=== PATIENT | male | born 1950 | race Caucasian/White ===

== ENCOUNTER 2019-10-06 06:26 | Day surgery (SDC) | payer MEDICARE, OTHER, SELFPAY | END 2019-10-06 08:40 | disposition home or self-care (01) | PROVIDERS: PCP Internal Medicine; Visit Provider Surgery | DX: R19.5 Other fecal abnormalities (principal); K57.30 Diverticulosis of large intestine without perforation or abscess without bleeding; D12.3 Benign neoplasm of transverse colon; K62.1 Rectal polyp | CPT/HCPCS: 45384; 00811; 88305; J2704; J7120 ==

== ENCOUNTER 2020-12-05 08:42 | Outpatient (CLI) | payer MEDICARE, OTHER, SELFPAY ==
--- NOTE | ~2020-12-05 | XR_ITS ---
EXAMINATION: XR chest 2V 12/05/2020 09:08 INDICATION: Shortness of breath PROCEDURE: 2 view chest COMPARISON: No prior studies for comparison. FINDINGS: There is left basilar atelectasis. No focal pneumonia, edema, pleural effusion or pneumotho rax. The cardiomediastinal silhouette is within normal limits. There are no pleural effusions. Ther e is no pneumothorax suspected. There is diffuse idiopathic skeletal hyperostosis (DISH) of the tho racic spine. IMPRESSION: 1: Left basilar atelectasis. Reviewed, dictated and finalized at location B.
== END 2020-12-05 08:43 | disposition home or self-care (01) ==
LOC: CHSIMG 08:44
PROVIDERS: PCP Internal Medicine; Visit Provider Internal Medicine
DX: R06.02 Shortness of breath (principal)
CPT/HCPCS: 71046

== ENCOUNTER 2020-12-12 09:42 | Outpatient (CLI) | payer MEDICARE, OTHER, SELFPAY ==
--- NOTE | 2020-12-12 09:49 | ECHO_ITS ---
Patient Info Name: Yoel Alfred Age: 70 years : 1950 Gender: Male Ht: 70 in Wt: 235 lbs BSA: 2.33 m2 HR: 94 bpm BP: 147 / 72 mmHg Heart Rhythm: Sinus Rhythm Technical Quality: Fair Exam Date: 12/12/2020 9:42 AM Exam Location: [facility] Patient Status: Outpatient Admit Date: 12/12/2020 Staff Ordering Physician: Jose Dietz MD Blister Rust Eradicator: Val Guevara RDCS Attending Provider: Jose Dietz MD Referring Physician: J Luis NGO; Exam Type: CA echo dop color flow w con Study Info Indications R06.00 - Dyspnea, unspecified Complete two-dimensional, color flow and Doppler transthoracic echocardiogram is performed with contrast to opacify the left ventricle and to improve the deliniation of the left ventricle endocardial borders. Strain analysis performed. Contrast/Agitated Saline Contrast/Ag. Saline: Definity Amount: 3.00 ml New IV Access: Antecubital Space and Right Site Condition: No extravasation, Site dressing applied and IV removed History/Risk Factors Hypertension: Yes Dyslipidemia: Yes Congenital Heart Disease (CHD): No Peripheral Arterial Disease (PAD): No Myocardial Infarction (MD): No Chronic Lung Disease: No Obesity: Yes Renal Disease: No Congestive Heart Failure (CHF): No Cardiomyopathy/LV Systolic Dysfunction: No Diabetes Mellitus: No COPD: No Tobacco Use: Former Cerebrovascular Disease: No Family History: Coronary Artery Disease Deep Vein Thrombosis (DVT): None Dialysis: None Frailty Scale (CSHA): 3: Managing Well Cardiac Arrest: No Summary 1. Left ventricular chamber dimension is normal. 2. Left ventricular systolic function is normal, estimated at 60-65%. 3. Definity contrast administered improved wall motion interpretation. 4. The left ventricular diastolic function is grade I diastolic dysfunction. 5. Global longitudinal strain is abnormal at -15.5%. 6. There is small circumferential pericardial effusion. Left Ventricle Definity contrast administered improved wall motion interpretation. E/e' from tissue doppler is not calculated. Global longitudinal strain is abnormal at -15.5%. Left ventricular chamber dimension is normal. Left ventricular systolic function is normal, estimated at 60-65%. The left ventricular diastolic function is grade I diastolic dysfunction. Right Ventricle Right ventricular systolic function is normal with normal TAPSE 1.8 cm.. Right ventricular chamber dimension is normal. Left Atria Left atrial chamber dimension is normal. Right Atria Right atrial chamber dimension is normal. Aortic Valve The aortic valve is trileaflet. There is no aortic valve stenosis. There is no aortic valve regurgitation. Pulmonic Valve There is no pulmonic regurgitation. Mitral Valve There is no mitral valve stenosis. There is no mitral valve regurgitation. Tricuspid Valve There is no tricuspid valve regurgitation. Pericardium/Pleural There is small circumferential pericardial effusion. Inferior Vena Cava Normal inferior vena cava with >50% collapse upon inspiration consistent with normal right atrial pressure, 5 mmHg. Aorta The aortic root size at the sinus of Valsalva is normal. Left Ventricular Outflow Tract Name Value Normal -----
== END 2020-12-12 09:43 | disposition home or self-care (01) ==
LOC: CHSIMG 09:43
PROVIDERS: PCP Internal Medicine; Visit Provider Internal Medicine
DX: R06.00 Dyspnea, unspecified (principal)
CPT/HCPCS: C8929

== ENCOUNTER 2020-12-17 08:44 | Outpatient (CLI) | payer MEDICARE, OTHER, SELFPAY | END 2020-12-17 08:45 | disposition home or self-care (01) | LOC: CHSCARD 08:46 | PROVIDERS: PCP Internal Medicine; Visit Provider Internal Medicine | DX: R06.02 Shortness of breath (principal) | CPT/HCPCS: 94060; 94726; 94729 ==

== ENCOUNTER 2022-01-14 11:34 | Outpatient (CLI) | payer MEDICARE, OTHER, SELFPAY ==
--- NOTE | ~2022-01-14 | XR_ITS ---
EXAM: XR lumbar spine 2-3V DATE: 01/14/2022 11:57 HISTORY: Low back pain . COMPARISON: None available. FINDINGS: 5 nonrib-bearing lumbar-type vertebral bodies. Pedicles intact. Multilevel disc space narr owing and marginal osteophytosis, vacuum phenomenon at L2-3 and L3-4. Multilevel severe facet scleros is. Exaggerated lumbar lordosis. 2 mm anterolisthesis of L3 on L4, likely on a degenerative basis. Ab dominal aortic calcification without aneurysm. Lytic appearance in the mid sacrum, with possible over lying subcutaneous gas. IMPRESSION: Possible subcutaneous gas and sacral lytic lesion, correlate with findings of sacral decu bitus ulcer and consider CT of the pelvis for further evaluation. Severe degenerative disc disease. S evere facet arthropathy. Reviewed, dictated and finalized at location K. IMPRESSION: Possible subcutaneous gas and sacral lytic lesion, correlate with f indings of sacral decubitus ulcer and consider CT of the pelvis for further josé luation. Severe degenerative disc disease. Severe facet arthropathy.
== END 2022-01-14 11:35 | disposition home or self-care (01) ==
LOC: CHSIMG 11:37
PROVIDERS: PCP Internal Medicine; Visit Provider Internal Medicine
DX: M54.50 Low back pain, unspecified (principal)
CPT/HCPCS: 72100

== ENCOUNTER 2022-01-15 10:39 | Outpatient (CLI) | payer MEDICARE, OTHER, SELFPAY ==
--- NOTE | ~2022-01-15 | CT_ITS ---
EXAMINATION: CT pelvis wo con DATE: 01/15/2022 11:20 INDICATION: Possible subcutaneous emphysema and sacral lytic lesion noted on the lumbar spine radiogr aphic examination of 01/14/2022 TECHNIQUE: Computed tomography (CT) of the pelvis was performed without intravenous contrast. Automat ed exposure control and iterative reconstruction technique were employed. Exam dose: 1041.76 mGy-cm total exam DLP. COMPARISON: None FINDINGS: Normal appendix. There are numerous diverticula of the sigmoid and descending colon; no CT evidence of diverticulitis. No bowel obstruction is evident. There is atherosclerotic calcification of the included distal abdominal aorta as well as the iliac an d femoral arteries. No intraperitoneal or retroperitoneal or pelvic mass lesion or adenopathy or asci yusuf. Line there is prostate enlargement. Small fat-containing left inguinal hernia. No subcutaneous emphysema or decubitus ulcers identified in the pelvic area. There is moderately severe degenerative disc disease and minimal retrolisthesis at L3-4. Moderate degenerative disc disease and minimal anterolisthesis at L4-5. There is degenerative change at the apophyseal joints of the lower lumbar and lumbosacral area. Moderate degenerative disc disease at L5-S1. No sacral fracture or bone destruction. There is degenerative spurring at the sacroiliac joints. No p elvic fracture or bone destruction. No sacral fracture or lytic lesion. IMPRESSION: No subcutaneous emphysema or sacral lytic lesion Degenerative disc disease of the lower lumbar area Degenerative change at the sacral iliac joints Normal appendix Diverticulosis of the left colon Prostate enlargement Small fat-containing left inguinal hernia Reviewed, dictated and finalized at Location A. Reviewed, dictated and finalized at location A.
--- NOTE | ~2022-01-15 | XR_ITS ---
XR_CERV2-3V_CR DATE: 01/15/2022 11:19 INDICATION: Neck pain, worse in the morning. No known injury. TECHNIQUE: AP, open-mouth, lateral views COMPARISON: None FINDINGS: C7 is not optimally demonstrated on the lateral view due to superimposed shoulders. Repeat lateral examination greater penetration and swimmer's view are recommended. C1 and C2 are normally aligned and the odontoid process is intact. There is minimal anterolisthesis at C3-4 and C4-5. No fracture or dislocation or locked facet or prevertebral soft tissue swelling is evident. There is degenerative change at the apophyseal joints, most prominent in the upper mid cervical spine , especially on the left. IMPRESSION: Incomplete examination; additional views are recommended above Reviewed, dictated and finalized at Location A. Reviewed, dictated and finalized at location A.
== END 2022-01-15 10:40 | disposition home or self-care (01) ==
LOC: CHSIMG 10:41
PROVIDERS: PCP Internal Medicine; Visit Provider Internal Medicine
DX: M54.2 Cervicalgia (principal); R93.7 Abnormal findings on diagnostic imaging of other parts of musculoskeletal system
CPT/HCPCS: 72040; 72192

== ENCOUNTER 2022-01-29 14:08 | Outpatient (CLI) | payer MEDICARE, OTHER, SELFPAY ==
--- NOTE | ~2022-01-29 | XR_ITS ---
XR chest 2V DATE: 01/29/2022 14:53 INDICATION: Dyspnea. Elevated d-dimer. TECHNIQUE: 2 views COMPARISON: 12/05/2020 PA and lateral chest FINDINGS: There is degenerative spurring and mild levoscoliosis of the thoracic spine. There is mild bibasilar atelectasis. The lungs otherwise appear clear. No pleural effusion or pulmona ry vascular congestion or pneumothorax. Normal heart size. Mild degenerative spurring of the thoracic spine. IMPRESSION: Mild bibasilar atelectasis Reviewed, dictated and finalized at location A. IMPRESSION: Mild bibasilar atelectasis
[2022-01-29 14:42] LABS: Hematocrit 31.2 % (37.0-46.0); Hemoglobin 10.4 g/dL (12.4-15.3); Mean Corpuscular HGB Conc 33.3 g/dL (32.0-36.0); Mean Corpuscular Hemoglobin 31.9 pg (27.0-31.0); Mean Corpuscular Volume 95.7 fL (78.0-102.0); Mean Platelet Volume 8.6 fl (8.7-11.0); Platelet Count Result 218 K/mm3 (150-420); Red Blood Count 3.26 M/mm3 (4.70-6.10); Red Cell Distribution Width 14.1 % (11.6-14.4)
[2022-01-29 15:10] LABS: Band Neutrophils Percent 1 % (0-6); Basophils Absolute Manual 0.22 K/mm3 (0-0.1); Basophils Percent Manual 1 % (0-1); Eosinophils Absolute Manual 0.22 K/mm3 (0.02-0.5); Eosinophils Percent Manual 1 % (1-6); Lymphocytes Percent Manual 11 % (18-44); Monocytes Absolute Manual 0.45 K/mm3 (0.1-0.90); Monocytes Percent Manual 2 % (3-9); Neutrophils Absolute Manual 19.38 K/mm3 (1.3-6.7); Neutrophils Percent Manual 84 % (46-73); Platelet Estimate Adequate (Adequate); Total Cells Counted 100; White Blood Count 22.8 K/mm3 (4.8-10.8)
[2022-01-29 15:25] LABS: Alanine Aminotransferase 328 U/L (16-63); Albumin Level 2.9 g/dL (3.4-5.0); Alkaline Phosphatase 433 U/L (46-116); Anion Gap 9 mmol/L (8-16); Aspartate Amino Transferase 131 U/L (15-37); Bilirubin,Total 4.9 mg/dL (0.00-1.00); Blood Urea Nitrogen 27 mg/dL (7-18); Calcium 8.5 mg/dL (8.5-10.1); Carbon Dioxide 25 mmol/L (21-32); Chloride 95 mmol/L (98-108); Estimated Glomerular Filt Rate > 60; Glucose 204 mg/dL (70-99); NT Pro B Type Natriuretic Pept 208 pg/mL (0-125); Osmolality Calculated 279 mOsm/kg (285-295); Potassium 3.7 mmol/L (3.5-5.1); Sodium 129 mmol/L (136-145); Total Protein 6.9 g/dL (6.4-8.2)
== END 2022-01-29 14:09 | disposition home or self-care (01) ==
PROVIDERS: PCP Internal Medicine; Visit Provider Internal Medicine
DX: R06.02 Shortness of breath (principal); R79.1 Abnormal coagulation profile; R53.83 Other fatigue
CPT/HCPCS: 36415; 71046; 80048; 80053; 83880; 84484; 85025; 85380

== ENCOUNTER 2022-01-29 15:29 | Emergency (ER) | payer MEDICARE, OTHER, SELFPAY ==
[2022-01-29] VITALS (25 sets, daily range): BP systolic 111–127; BP diastolic 68–81; PULSE 82–108; RESP 19–33; TEMP 36.2; O2SAT 97–100
--- NOTE | ~2022-01-29 | CT_ITS ---
EXAMINATION: CT abdomen pelvis w con DATE: 01/29/2022 17:10 INDICATION: Abn CTA PE study, pt is jaundice decr appetite x1wk TECHNIQUE: Computed tomography (CT) of the abdomen and pelvis was performed with 100 mL Omnipaque-350 intravenous contrast. Automated exposure control and iterative reconstruction technique were employe d. The dose-length product was 1326.22 mGy-cm. COMPARISON: CTPA same date. FINDINGS: Lower thorax: Straightened interventricular septum. Right basilar opacity may reflect infarct or infe ction. Liver: Innumerable low density liver masses. Scattered subcentimeter lymph nodes in the kenny hepatis . Biliary/Gallbladder: Enlarged. Extra hepatic bile duct dilation. Pancreas: 13 mm hypodensity at the junction of the head and neck. Multiple scattered ill-defined hypo densities in the body and tail of the pancreas with somewhat peripheral distribution. Pancreas is mil dly enlarged, with surrounding inflammatory change most evident at the head/neck junction. Spleen: Normal. Adrenals:No mass. Kidneys: Left upper pole and right lower pole possible cysts. No hydronephrosis or calcification. GI tract: Marked irregularity at the duodenal C-loop, with irregular somewhat nodular appearing wall thickening of the third portion of duodenum, and surrounding inflammatory change that has no clear fa t plane with the pancreatic head. Large and small bowel otherwise normal. Appendix not visualized. Di verticulosis without diverticulitis. Mesentery/Peritoneum: No ascites, mass, or free air. Retroperitoneum: No mass. Atherosclerotic arterial calcifications, with small fusiform distal aortic aneurysm, and intramural thrombus. Pelvis: Prostatomegaly. Soft Tissues: Soft tissues and body wall unremarkable. Bones: No acute osseous finding. IMPRESSION: Masslike nodularity at the duodenal C-loop, may reflect a duodenal or pancreatic primary, causing aarti iary and pancreatic duct dilation. Multiple pancreatic hypodensities may reflect metastases or edema/ developing pseudocysts from postobstructive inflammation. Innumerable hepatic metastases. Consider [facility] stro[facility]ology referral for possible endoscopy. Ultrasound-guided liver biopsy could also be consider ed for further evaluation. Reviewed, dictated and finalized at location K. IMPRESSION: Masslike nodularity at the duodenal C-loop, may reflect a duodenal or pancreati c primary, causing biliary and pancreatic duct dilation. Multiple pancreatic hy podensities may reflect metastases or edema/developing pseudocysts from postobs tructive inflammation. Innumerable hepatic metastases. Consider gastroenterolog y referral for possible endoscopy. Ultrasound-guided liver biopsy could also be considered for further evaluation.
--- NOTE | ~2022-01-29 | CT_ITS ---
EXAMINATION: CTA chest PE protocol DATE: 01/29/2022 16:04 INDICATION: Shortness of breath TECHNIQUE: Computed tomography angiography (CTA) of the chest was performed with 100 mL Omnipaque-350 intravenous contrast timed to evaluate the pulmonary arteries. Coronal maximum intensity projection 3D-reconstructions were created by the technologist. The dose-length product (DLP) was 816.03 mGy-cm. Automated exposure control and iterative reconstruction technique were employed. COMPARISON: None. FINDINGS: The pulmonary arteries are well-opacified. There are acute emboli in all lobes of the lungs . There are emboli and first order segmental branches of the left upper lobe. There is straightening of the interventricular septum of the heart. The heart size is normal. There is a focal subpleural op acity in the right lower lobe. No pleural effusion or pneumothorax. There are no pathologically enlar ged thoracic lymph nodes. There are bridging osteophytes at multiple levels in the spine, consistent with diffuse idiopathic skeletal hyperostosis (DISH). The gallbladder is distended. There is also dis tention of the main pancreatic duct. There are questionable areas of low-attenuation of the liver. Th ere is an ill-defined soft tissue mass at the junction of the head/neck of the pancreas which measure s up to 2.9 cm. IMPRESSION: 1. Widespread pulmonary emboli including proximal branches in the left upper lobe. Straightening of t he interventricular septum could reflect right heart strain. 2. Gallbladder distention and dilated pancreatic duct which could reflect distal common bile duct obs truction from mass or choledocholithiasis. Consider dedicated CT of the abdomen and pelvis. 3. Ill-defined soft tissue mass in the head/neck of the pancreas junction which could reflect acute p ancreatitis versus mass. 4. Possible liver masses which may be artifactual versus true masses given the early phase of contras t administration. 5. Subpleural airspace opacity of the right lower lobe which could reflect pulmonary infarct versus p neumonia. These findings and recommendations were discussed with Dr. Yoel Camacho MD in the Emergency Depart ment at 1620 hours on 01/29/2022. Reviewed, dictated and finalized at location A. IMPRESSION: 1. Widespread pulmonary emboli including proximal branches in the left upper lo be. Straightening of the interventricular septum could reflect right heart stra in. 2. Gallbladder distention and dilated pancreatic duct which could reflect dista l common bile duct obstruction from mass or choledocholithiasis. Consider dedic ated CT of the abdomen and pelvis. 3. Ill-defined soft tissue mass in the head/neck of the pancreas junction which could reflect acute pancreatitis versus mass. 4. Possible liver masses which may be artifactual versus true masses given the early phase of contrast administration. 5. Subpleural airspace opacity of the right lower lobe which could reflect pulm onary infarct versus pneumonia. These findings and recommendations were discussed with Dr. Yoel Camacho MD i n the Emergency Department at 1620 hours on 01/29/2022.
--- NOTE | 2022-01-29 15:34 | ED.SOB ---
HPI - SOB/Dyspnea General Chief Complaint: Shortness of Breath/Dyspnea <Yoel Camacho MD - Last Filed: 02/02/22 11:09> Stated Complaint: sent by dr lares <Yoel Camacho MD - Last Filed: 02/02/22 11:09> Time Seen by Provider: 01/29/22 15:34 <Yoel Camacho MD - Last Filed: 02/02/22 11:09> Source: patient and RN notes reviewed <Yoel Camacho MD - Last Filed: 02/02/22 11:09> Mode of arrival: wheelchair <Yoel Camacho MD - Last Filed: 02/02/22 11:09> Limitations: no limitations <Yoel Camacho MD - Last Filed: 02/02/22 11:09> History of Present Illness HPI Narrative: patient states he had a sudden sharp pain in his neck 2 weeks ago. Said he could barely lift his head. He went to see his primary care physician at that time he also complained of some shortness of breath. He was sent over for x-rays of his neck his cervical spine and lumbar spine as well as pelvic CT. No significant findings. he went back to his primary care on January.He was put on some antibiotics and a Medrol Dosepak. Today he had a similar episode with his neck but is still having problems with dyspnea shortness of breath. He called his primary care physician who did some outpatient labs found to have elevated D-dimer, elevated troponin, and a white count of 22.8. He denies any other associated symptoms such as leg pain or calf tenderness, fever chills, nausea vomiting, diaphoresis, chest pain. He is sent here from his primary care physician's office for further evaluation. <Yoel Camacho MD - Last Filed: 02/02/22 11:09> MD elicited complaint: shortness of breath <Yoel Camacho MD - Last Filed: 02/02/22 11:09> Onset (ago): week(s) (2) <Yoel Camacho MD - Last Filed: 02/02/22 11:09> Timing: intermittent <Yoel Camacho MD - Last Filed: 02/02/22 11:09> Severity: moderate <Yoel Camacho MD - Last Filed: 02/02/22 11:09> Exacerbating factors: exertion <Yoel Camacho MD - Last Filed: 02/02/22 11:09> Relieving factors: nothing <Yoel Camacho MD - Last Filed: 02/02/22 11:09> Associated symptoms: denies other symptoms <Yoel Camacho MD - Last Filed: 02/02/22 11:09> Treatment prior to arrival: none <Yoel Camacho MD - Last Filed: 02/02/22 11:09> Related Data Home oxygen amount: none <Yoel Camacho MD - Last Filed: 02/02/22 11:09> Home Medications: Home Medications Medication Instructions Recorded Confirmed allopurinol 300 mg tablet 1.5 tablet DAILY 01/29/22 01/29/22 aspirin 1 tablet DAILY 01/29/22 01/29/22 lisinopril 20 1 tablet DAILY 01/29/22 01/29/22 mg-hydrochlorothiazide 12.5 mg tablet meloxicam 15 mg tablet 1 tablet DAILY 01/29/22 01/29/22 pravastatin 20 mg tablet 1 tablet DAILY 01/29/22 01/29/22 tamsulosin 0.4 mg capsule 1 cap PO DAILY 01/29/22 01/29/22 tramadol 50 mg tablet 1 tablet Q6-8H PRN Pain 01/29/22 01/29/22 <Yoel Camacho MD - Last Filed: 02/02/22 11:09> Allergies/Adverse Reactions: Allergies Allergy/AdvReac Type Severity Reaction Status Date / Time No Known Allergies Allergy Unverified 01/29/22 15:51 <Yoel Camacho MD - Last Filed: 02/02/22 11:09> Review of Systems Review of Systems: All systems reviewed & are unremarkable except as noted in HPI and below <Yoel Camacho MD - Last Filed: 02/02/22 11:09> Cardiovascular: Cardiovascular: Denies chest pain and Denies rapid heart rate <Yoel Camacho MD - Last Filed: 02/02/22 11:09> Respiratory: Respiratory: Reports as per HPI <Yoel Camacho MD - Last Filed: 02/02/22 11:09> Gastrointestinal: Gastrointestinal: Denies nausea and Denies vomiting <Yoel Camacho MD - Last Filed: 02/02/22 11:09> Musculoskeletal: Musculoskeletal: Denies myalgias <Yoel Camacho MD - Last Filed: 02/02/22 11:09> Endocrine: Endocrine: Denies excessive sweating <Yoel Camacho MD - Last Filed: 02/02/22 11:09> [facility] Past Medical History [facility]
--- NOTE | 2022-01-29 15:46 | ECG_ITS ---
Measurements Intervals [place] Rate: 90 P: 50 WV: 162 QRS: 29 QRSD: 98 T: 51 QT: 346 QTc: 425 Interpretive Statements SINUS RHYTHM BASELINE ARTIFACT NONSPECIFIC ST ABNORMALITY POSSIBLE RIGHT VENTRICULAR CONDUCTION DELAY BORDERLINE ECG NO PREVIOUS ECG AVAILABLE FOR COMPARISON Electronically Signed On 01-29-2022 16:49:49 CDT by Hubert Boss M.D.
--- NOTE | 2022-01-29 16:10 | PC.NURSE ---
Dr. Dietz spoke with Dr. Camacho via telephone and clarified that pt was last seen in his office on 01-24-22. Pt called the office today, but was not seen in person. Dr. Dietz ordered outpatient testing and Pt would follow-up after tests were resulted. However, due to some of the results Dr. Dietz called Pt and told him to come to ER for more immediate evaluation.
[2022-01-29] MEDS: APIXABAN 2.5 MG TABLET 10 MG PO ×2 (16:40→22:07)
[2022-01-29] MEDS: SODIUM CHLORIDE 0.9% IV 1,000 ML 500 ML IV CONT (16:43)
[2022-01-29 16:50] LABS: Lipase 1641 U/L (73-393)
--- NOTE | 2022-01-29 19:15 | PC.NURSE ---
Contacted multiple hospitals in attempt to transfer pt with no success so far. [facility] is at capacity. [facility], [facility], and [facility] all have a 2-3 day wait. [facility] currently has no beds. Awaiting a call back from [facility].
--- NOTE | 2022-01-29 19:47 | PC.NURSE ---
Called [facility] again. [facility] is full, but they will check to see if one of the smaller facilities can accommodate Pt. Per ERP, [facility] is only accepting established Pt's and Pt has never been to a [facility] facility before.
--- NOTE | 2022-01-29 20:02 | PC.NURSE ---
[facility] cannot accept pt at smaller facility. Pt placed on waitlist for [facility]. Pt updated about transfer delays and informed that he will most likely be spending the night in ER. Will start calling transfer centers again tomorrow morning if no one calls back tonight with a bed. will bring Pt's home meds tomorrow. Pt states that he does not take any meds in the evening.
[2022-01-29 20:06] LABS: SARS-CoV-2 RNA PCR Negative (Negative)
[2022-01-30] VITALS (99 sets, daily range): BP systolic 88–122; BP diastolic 52–91; PULSE 70–103; RESP 6–33; TEMP 36.6; O2SAT 96–100
--- NOTE | 2022-01-30 01:45 | PC.NURSE ---
Report given to Kelly RN
[2022-01-30 05:26] LABS: Basophils Absolute Auto 0.07 K/mm3 (0.00-0.10); Basophils Percent Auto 0.4 % (0.0-1.0); Eosinophils Percent Auto 3.6 % (1.0-6.0); Hematocrit 28.9 % (37.0-46.0); Hemoglobin 9.6 g/dL (12.4-15.3); Immature Granulocyte Absolute 0.41 K/mm3 (0.00-0.00); Immature Granulocyte Percent A 2.1 % (0.0-0.0); Lymphocytes Percent Auto 12.8 % (18.0-42.0); Mean Corpuscular HGB Conc 33.2 g/dL (32.0-36.0); Mean Corpuscular Hemoglobin 32.1 pg (27.0-31.0); Mean Corpuscular Volume 96.7 fL (78.0-102.0); Mean Platelet Volume 8.2 fl (8.7-11.0); Monocytes Absolute Auto 1.42 K/mm3 (0.10-0.90); Monocytes Percent Auto 7.3 % (2.0-11.0); Neutrophils Absolute Auto 14.4 K/mm3 (1.7-7.2); Neutrophils Percent Auto 73.8 % (50.0-70.0); Platelet Count Result 178 K/mm3 (150-420); Red Blood Count 2.99 M/mm3 (4.70-6.10); Red Cell Distribution Width 14.3 % (11.6-14.4); White Blood Count 19.5 K/mm3 (4.8-10.8)
[2022-01-30 05:42] LABS: Alanine Aminotransferase 302 U/L (16-63); Albumin Level 2.6 g/dL (3.4-5.0); Alkaline Phosphatase 376 U/L (46-116); Anion Gap 6 mmol/L (8-16); Aspartate Amino Transferase 120 U/L (15-37); Blood Urea Nitrogen 27 mg/dL (7-18); Calcium 8.4 mg/dL (8.5-10.1); Carbon Dioxide 28 mmol/L (21-32); Chloride 97 mmol/L (98-108); Estimated CRCL calculation 67 ml/min; Estimated Glomerular Filt Rate > 60; Glucose 144 mg/dL (70-99); Lipase 1369 U/L (73-393); Osmolality Calculated 280 mOsm/kg (285-295); Potassium 3.9 mmol/L (3.5-5.1); Sodium 131 mmol/L (136-145); Total Protein 6.7 g/dL (6.4-8.2)
[2022-01-30] MEDS: DEXTROSE 5%/0.45% SOD CHL 1,000 ML 150 ML IV CONT (06:49)
--- NOTE | 2022-01-30 07:00 | PC.NURSE ---
report to next shift. D51/2NS running at report
--- NOTE | 2022-01-30 07:07 | PC.NURSE ---
report from sally brock, pt is on hospital bed, eating ice chips at this time. pt continues to await acceptance for transfer. nad noted. will continue to monitor.
[2022-01-30] MEDS: SODIUM CHLORIDE 0.9% IV 1,000 ML 999 ML IV CONT ×2 (07:59→10:15)
--- NOTE | 2022-01-30 08:02 | PC.NURSE ---
d5 1/2 ns paused at this time due to erp ordering ns bolus. pt is watching tv at this time, nad noted. vss. pt denies any needs or complaints. lab at bedside, obtaining morning labs. will continue to monitor.
[2022-01-30 08:25] LABS: CRP 9.5 mg/dL (0.0-0.9)
[2022-01-30 08:28] LABS: INR 1.3; Prothrombin Time 13.5 Seconds (9.50-12.10)
[2022-01-30 08:34] LABS: Lactic Acid Reflex 0.7 mmol/L (0.4-2.0)
--- NOTE | 2022-01-30 09:17 | PC.NURSE ---
[facility] supervisor wash [facility] contacted for possible transfer, erp to contact dr andrade at this time.
--- NOTE | 2022-01-30 09:26 | PC.NURSE ---
pt up to rr per rn and wc. pt returned to hospital bed. denies any other needs or complaints. pt at bedside. vss per monitor. will continue to monitor.
--- NOTE | 2022-01-30 10:08 | PC.NURSE ---
[facility] return call to update [facility] wait list, pt remains on the list. pt is awaiting return call from dr andrade at this time. [facility], she is to return call with further contact information for dr dee. daughter and at bedside. will continue to monitor. nad noted. vss.
--- NOTE | 2022-01-30 10:20 | PC.NURSE ---
message left with dr andrade's office to return call
--- NOTE | 2022-01-30 10:23 | PC.NURSE ---
pt is jaundice, scelara are yellow. dr andrade has returned call at this time.
--- NOTE | 2022-01-30 11:12 | PC.NURSE ---
[facility] head housekeeper notified for need of icu bed and hydro station operator consult.
--- NOTE | 2022-01-30 11:29 | PC.NURSE ---
ICU refused pt at [facility], needs IR
--- NOTE | 2022-01-30 11:44 | PC.NURSE ---
pt is currently sleeping in exam room, family have left. vss. ivf infusing as ordered without difficulty. will continue to monitor.
--- NOTE | 2022-01-30 12:40 | PC.NURSE ---
NO CHANGE IN PT STATUS, HE IS RESTING WITHOUT DISTRESS. [facility] CALLS TO UPDATE WAIT LIST, PT REMAINS ON LIST. VSS PER MONITOR. WILL CONTINUE TO MONITOR.
--- NOTE | 2022-01-30 14:26 | PC.NURSE ---
has returned. pt is sitting up talking with her. pt was up to bedside to utilize urinal with assist. pt tolerated well, sob noted with exertion. pt denies any difficulty breathing or pain with breathing. nad noted. vss per monitor. will continue to monitor.
--- NOTE | 2022-01-30 15:51 | PC.NURSE ---
pt status updated to med surg status, multiple facilities notified and pt is on multiple wait lists-see list. [facility] fine patcher called back, stating pt does not need icu. no change in pt status at this time. will continue to monitor.
--- NOTE | 2022-01-30 16:17 | PC.NURSE ---
PT UPDATED ON STATUS, REQUESTING SOMETHING TO EAT. PER DR DUGAN, PT TO HAVE JELLO. JELLO PROVIDED. PT IS TALKING ON CELL WITHOUT DIFFICULTY. WILL CONTINUE TO MONITOR.
[2022-01-30] MEDS: DEXTROSE 5%/0.45% SOD CHL 1,000 ML 100 ML IV CONT ×2 (16:45→16:47)
--- NOTE | 2022-01-30 17:54 | PC.NURSE ---
PT UP TO RR WITH ASSISTANCE, RETURNED TO STRETCHER. NAD NOTED. PT IS SOB WITH EXERTION, HOWEVER DOES RECOVER WITHOUT MUCH DIFFICULTY. VSS. WILL CONTINUE TO MONITOR.
--- NOTE | 2022-01-30 19:09 | PC.NURSE ---
REPORT TO XENIA GONZALEZ. PT IS AWARE OF PLAN OF CARE. SON AT BEDSIDE. NAD NOTED. VSS PER MONITOR. IVF INFUSING ORDERED WITHOUT DIFFICULTY.
--- NOTE | 2022-01-30 19:35 | PC.NURSE ---
Pt resting in bed c TV on and call erickson at side. Pt is A&O x3, discussed POC in depth c pts family at bedside. Pt repositioned in bed c help. VSS, voices no concerns at this time.
--- NOTE | 2022-01-30 20:47 | PC.NURSE ---
Call back from [facility], pt will remain on waitlist as no beds available at this time. Pt sleeping, VSS, no distress noted.
[2022-01-30] MEDS: APIXABAN 2.5 MG TABLET 10 MG PO (20:51)
--- NOTE | 2022-01-30 20:59 | PC.NURSE ---
Pt ambulated c SBA to BR to urinate, gait steady, back to bed and positioned for comfort c pillows. Call reickson at side, monitor SR.
--- NOTE | 2022-01-30 22:34 | PC.NURSE ---
Pt assisted to side lying position for comfort c pillows, VSS, call erickson in pt reach.
--- NOTE | 2022-01-30 23:40 | PC.NURSE ---
Pt sleeping, VSS.
[2022-01-31] VITALS (77 sets, daily range): BP systolic 104–130; BP diastolic 63–87; PULSE 73–99; RESP 13–33; TEMP 36.6; O2SAT 94–100
--- NOTE | 2022-01-31 00:05 | PC.NURSE ---
Pt awake and moaning in pain, unable to get comfortable, pt c/o severe back and lower hip pain and is restless in bed. Pt assisted to w/c and taken to BR, urinated and assisted back to bed. ERP notified for pain med order, order obtained. Pt readjusted in bed c pillows and call erickson at pt side. VSS.
[2022-01-31] MEDS: MORPHINE SULFATE (*CRX) 2 MG/ML INJ IV PUSH ×4 (00:10→21:31)
[2022-01-31] MEDS: DEXTROSE 5%/0.45% SOD CHL 1,000 ML 150 ML IV CONT (02:02)
--- NOTE | 2022-01-31 02:03 | PC.NURSE ---
Pt resting more comfortably, no distress noted, reports morphine helped him feel slightly better. VSS, monitor SR, call erickson at pt side.
--- NOTE | 2022-01-31 03:10 | PC.NURSE ---
Pt restless, c/o Lt side in pain now, assisted to side of bed, feet dangling. VSS.
--- NOTE | 2022-01-31 04:22 | PC.NURSE ---
[facility] called for update, no beds at this time, pt still on waitlist, they will call when bed is available for transfer. Pt sleeping at this time, VSS, RR even and nonlabored.
--- NOTE | 2022-01-31 05:31 | PC.NURSE ---
Pt sleeping, RR even and nonlabored.
--- NOTE | 2022-01-31 05:34 | PC.NURSE ---
Call back from [facility] for pt update. Updates given, still no beds at [facility], pt remains on their waitlist.
--- NOTE | 2022-01-31 05:46 | PC.NURSE ---
[facility] called for update, pt. status update given and pt remains on their waitlist. Pt sleeping, RR even and nonlabored.
--- NOTE | 2022-01-31 07:14 | PC.NURSE ---
Pt sitting bedside, VSS, Report to XENIA Norman
--- NOTE | 2022-01-31 08:09 | PC.NURSE ---
dr mays in with pt and discussing plan of care. calls made for bed placement
--- NOTE | 2022-01-31 08:27 | PC.NURSE ---
call for dietary tray, clear liquid diet.
[2022-01-31 09:10] LABS: Basophils Absolute Auto 0.05 K/mm3 (0.00-0.10); Basophils Percent Auto 0.4 % (0.0-1.0); Eosinophils Absolute Auto 0.91 K/mm3 (0.02-0.50); Eosinophils Percent Auto 6.4 % (1.0-6.0); Hematocrit 27.1 % (37.0-46.0); Hemoglobin 8.8 g/dL (12.4-15.3); Immature Granulocyte Absolute 0.24 K/mm3 (0.00-0.00); Immature Granulocyte Percent A 1.7 % (0.0-0.0); Lymphocytes Absolute Auto 1.79 K/mm3 (1.10-4.50); Lymphocytes Percent Auto 12.6 % (18.0-42.0); Mean Corpuscular HGB Conc 32.5 g/dL (32.0-36.0); Mean Corpuscular Hemoglobin 31.3 pg (27.0-31.0); Mean Corpuscular Volume 96.4 fL (78.0-102.0); Mean Platelet Volume 8.4 fl (8.7-11.0); Monocytes Absolute Auto 1.06 K/mm3 (0.10-0.90); Monocytes Percent Auto 7.5 % (2.0-11.0); Neutrophils Absolute Auto 10.2 K/mm3 (1.7-7.2); Neutrophils Percent Auto 71.4 % (50.0-70.0); Platelet Count Result 176 K/mm3 (150-420); Red Blood Count 2.81 M/mm3 (4.70-6.10); Red Cell Distribution Width 14.3 % (11.6-14.4); White Blood Count 14.2 K/mm3 (4.8-10.8)
[2022-01-31 09:27] LABS: Alanine Aminotransferase 274 U/L (16-63); Albumin Level 2.2 g/dL (3.4-5.0); Alkaline Phosphatase 331 U/L (46-116); Anion Gap 8 mmol/L (8-16); Aspartate Amino Transferase 123 U/L (15-37); Bilirubin Direct 4.7 mg/dL (0-0.2); Bilirubin,Total 5.4 mg/dL (0.00-1.00); Blood Urea Nitrogen 15 mg/dL (7-18); Calcium 7.8 mg/dL (8.5-10.1); Carbon Dioxide 25 mmol/L (21-32); Chloride 101 mmol/L (98-108); Estimated CRCL calculation 84 ml/min; Estimated Glomerular Filt Rate > 60; Glucose 144 mg/dL (70-99); Lipase 1435 U/L (73-393); Osmolality Calculated 281 mOsm/kg (285-295); Potassium 3.4 mmol/L (3.5-5.1); Sodium 134 mmol/L (136-145); Total Protein 5.8 g/dL (6.4-8.2)
[2022-01-31] MEDS: LACTATED RINGERS 1,000 ML 75 ML IV CONT (09:34)
[2022-01-31] MEDS: APIXABAN 2.5 MG TABLET 10 MG PO ×2 (09:35→21:29)
--- NOTE | 2022-01-31 10:02 | PC.NURSE ---
0915 pt up and ambulated to shower, able to wash self with minimal assist of washing back and feet. tolerated shower well. no increase in shortness of breath, per pt no more than usual . pt ambulated to bathroom without difficulty. back to room , in visiting. pt sitting up in recliner with legs up and elevated. reclined with pillow behind head as requested. call erickson in reach, no further needs at this time.
[2022-01-31 10:58] LABS: Appearance Urine Clear (Clear); Bilirubin Urine 2+ (Negative); Glucose Urine UA Trace (Negative); Ketones Urine Negative (Negative); Leukocyte Esterase Ur Negative (Negative); Nitrate Urine Negative (Negative); Protein Urine Negative (Negative); Urobilinogen Urine 0.2 mg/dL (0.2-1.0)
[2022-01-31 11:02] LABS: Add Urine Microscopic? YES; Bacteria Urine 1+ /hpf; Blood Urine Trace-Intact (Negative); Color Urine Dark Orange (Yellow); RBC Urine 0-2 /hpf (0-2); Squamous Epithelial Cell Urine Rare /hpf (Few); WBC Urine 0-3 /hpf (0-3)
--- NOTE | 2022-01-31 11:44 | PC.NURSE ---
pt sleeping , sitting in recliner. pt voiced did not sleep well last night. left undisturbed. call erickson in reach
--- NOTE | 2022-01-31 12:22 | PC.NURSE ---
call to multiple facilities for transfer, no beds available. pt assisted to bed, head elevated to level of comfort, call erickson in reach. watching tv
--- NOTE | 2022-01-31 12:23 | PC.NURSE ---
pt declined liquid meal tray. vicente mist given, clarified with dr mays.
--- NOTE | 2022-01-31 13:21 | PC.NURSE ---
pt sleeping, left undisturbed
--- NOTE | 2022-01-31 18:00 | PC.NURSE ---
call from [facility] in [facility] , updated vitals given , checking on medical bed available. will call back. pt alert and stable visiting with family members.
--- NOTE | 2022-01-31 19:08 | PC.NURSE ---
report to XENIA daniels. pt sitting up in reclinerernst. declined any other needs at this time.
[2022-01-31] MEDS: ONDANSETRON INJ 4 MG/2 ML VIAL IV PUSH (21:36)
== END 2022-02-01 00:23 | disposition short-term general hospital (02) ==
PROVIDERS: Emergency Medicine; Internal Medicine Critical Care Medicine; Emergency Provider Emergency Medicine; PCP Internal Medicine
DX: K83.1 Obstruction of bile duct (principal); K86.9 Disease of pancreas, unspecified; K85.90 Acute pancreatitis without necrosis or infection, unspecified; J44.9 Chronic obstructive pulmonary disease, unspecified; E78.5 Hyperlipidemia, unspecified; I10 Essential (primary) hypertension; Z87.891 Personal history of nicotine dependence
CPT/HCPCS: 36415; 71046; 71275; 74177; 80048; 80053; 80076; 81001; 83605; 83690; 83880; 84484; 85025; 85380; 85610; 86140; 87040; 93005; 96361; 96365; 96366; 96367; 96375; 96376; 99285; A9270; C9803; J0692; J2270; J2405; J2543; J7030; J7120; Q9967; U0003; U0005

== ENCOUNTER 2022-02-15 14:46 | Observation (INO) | payer MEDICARE, OTHER, SELFPAY ==
--- NOTE | 2022-02-15 14:49 | ED.GENADULT ---
HPI - General Adult General Chief complaint: Anxiety Stated complaint: amb Source: patient, family and RN notes reviewed Mode of arrival: EMS Limitations: no limitations History of Present Illness HPI narrative: patient just discharged from [facility]. There he was diagnosed with pancreatic cancer with obstruction of his common bile duct. He had an IVC filter placed. He was also treated for pulmonary emboli. Today he began having pain all over. He has chest pressure with increased shortness of breath. He has OxyContin at home but says that is not working so refused to take it. states that he has signed DNR papers. complaint: pain all over Onset (ago): hour(s) Radiation: non-radiation Severity: severe Quality: aching Associated symptoms: chest pain ( pressure), diaphoresis, shortness of breath and weakness Related Data Home Medications Medication Instructions Recorded Confirmed allopurinol 300 mg tablet 1.5 tablet DAILY 01/29/22 01/29/22 aspirin 1 tablet DAILY 01/29/22 01/29/22 lisinopril 20 1 tablet DAILY 01/29/22 01/29/22 mg-hydrochlorothiazide 12.5 mg tablet meloxicam 15 mg tablet 1 tablet DAILY 01/29/22 01/29/22 pravastatin 20 mg tablet 1 tablet DAILY 01/29/22 01/29/22 tamsulosin 0.4 mg capsule 1 cap PO DAILY 01/29/22 01/29/22 tramadol 50 mg tablet 1 tablet Q6-8H PRN Pain 01/29/22 01/29/22 Allergies Allergy/AdvReac Type Severity Reaction Status Date / Time No Known Allergies Allergy Unverified 02/15/22 15:05 Review of Systems Review of Systems: All systems reviewed & are unremarkable except as noted in HPI and below PMFSH Past Medical History Medical History (Updated 02/15/22 @ 16:05 by Yoel Camacho MD) Acute [place] Arthritis BPH (benign prostatic hyperplasia) COPD (chronic obstructive pulmonary disease) Gout Hyperlipidemia Hypertension Pancreatic cancer Surgical History Surgical History (Updated 02/15/22 @ 15:05 by Yoel Camacho MD) No pertinent past surgical history S/P IVC filter Social History Social History (Updated 01/29/22 @ 15:49 by Yoel Camacho MD) Smoking status: Former smoker Tobacco type: cigarettes Second hand tobacco smoke exposure: No Alcohol intake: unknown Substance use: never Spiritual care concerns: No Exam Const: General: diaphoretic and ill appearing chronically Nutritional Appearance: obese centrally obese Orientation/consciousness: patient oriented x3 Limitations: no limitations HENMT: Head: normal to inspection Ears: external ears normal General nose exam: Normal external nose present Face and sinus: normal facial exam Mouth: Yes moist mucous membranes Eyes: Conjunctivae: conjunctival abnormality bilateral conjunctival icterus Pupils: Equal, round and reactive pupils present EOM: EOMs intact bilaterally Neck: Neck: normal visual inspection Resp: Effort & Inspection: tachypneic Auscultation: clear to auscultation bilaterally Cardio: Rate: tachycardic Rhythm: regular rhythm GI: GI Palp: Yes Soft to palpation and Yes Tenderness to palpation present (GI) ( Mild throughout) Auscultation: normal bowel sounds Back/Spine/Pelvis: Cervical Spine: cervical ROM normal Thoracic/Lumbar Spine: thoraco-lumbar ROM normal Skin: General skin exam: jaundice and pallor Rashes: no rashes Neuro: General: patient oriented x3, moves all extremities, no focal motor deficits and CN's II-XI intact bilaterally Speech: normal speech Extrem: General: normal to inspection Psych: Affect: Anxious affect present Attitude: cooperative Course Vital Signs Vital signs: Vital Signs Temperature 36.3 C L 02/15/22 14:53 Pulse Rate 132 H 02/15/22 14:53 Respiratory Rate 16 02/15/22 14:53 Blood Pressure 92/61 L 02/15/22 14:53 Pulse Oximetry 100 02/15/22 14:53 Oxygen Delivery Nasal Cannula 02/15/22 14:53 Oxygen Flow Rate 5 02/15/22 14:53 Temperature 30.1 C L 02/15/22 17:49 Pulse Rate 62 02/15/22 17
[2022-02-15 14:53] VITALS: BP 92/61; PULSE 132; RESP 16; TEMP 36.3; O2SAT 100
--- NOTE | 2022-02-15 14:53 | ECG_ITS ---
Measurements Intervals [place] Rate: 131 P: 24 RI: 180 QRS: 23 QRSD: 89 T: 55 QT: 307 QTc: 454 Interpretive Statements SINUS TACHYCARDIA CONSIDER ANTEROLATERAL INFARCT, AGE INDETERMINATE POSTERIOR INFARCT, CONSIDER ACUTE SUBTLE ST ELEVATION IN INFERIOR LEADS- CONSIDER ACUTE INFARCTION BASELINE WANDER- II, III, AVF, V1-V2, V4 ABNORMAL ECG Electronically Signed On 02-15-2022 15:43:01 CDT by Jordan Sales D.O.
[2022-02-15] MEDS: HYDROmorphone HCL INJ (*CRX) 2 MG/ML VIAL 1 MG IM (15:08)
[2022-02-15] MEDS: LORazepam INJ (*CRX) 2 MG/ML VIAL 0.5 MG IM (15:09)
[2022-02-15 15:13] LABS: Mean Corpuscular HGB Conc 28.9 g/dL (32.0-36.0); Mean Corpuscular Hemoglobin 30.5 pg (27.0-31.0); Mean Corpuscular Volume 105.6 fL (78.0-102.0); Mean Platelet Volume 9.8 fl (8.7-11.0); Platelet Count Result 228 K/mm3 (150-420); Red Blood Count 1.77 M/mm3 (4.70-6.10); Red Cell Distribution Width 23.6 % (11.6-14.4)
[2022-02-15 15:19] LABS: Hemoglobin 5.4 g/dL (12.4-15.3); White Blood Count 29.6 K/mm3 (4.8-10.8)
[2022-02-15 15:20] LABS: Hematocrit 18.7 % (37.0-46.0)
[2022-02-15 15:24] LABS: INR 2.8; Prothrombin Time 28.7 Seconds (9.50-12.10)
[2022-02-15 15:30] LABS: Alanine Aminotransferase 147 U/L (16-63); Albumin Level 1.5 g/dL (3.4-5.0); Alkaline Phosphatase 261 U/L (46-116); Anion Gap 13 mmol/L (8-16); Aspartate Amino Transferase 193 U/L (15-37); Bilirubin,Total 6.6 mg/dL (0.00-1.00); Blood Urea Nitrogen 47 mg/dL (7-18); Calcium 7.4 mg/dL (8.5-10.1); Carbon Dioxide 22 mmol/L (21-32); Chloride 106 mmol/L (98-108); Estimated Glomerular Filt Rate 43; Glucose 212 mg/dL (70-99); Osmolality Calculated 310 mOsm/kg (285-295); Sodium 141 mmol/L (136-145); Total Protein 4.5 g/dL (6.4-8.2)
[2022-02-15 15:34] LABS: Troponin I 4148.1 ng/L (0.00-60.4)
[2022-02-15 15:59] LABS: Band Neutrophils Percent 4 % (0-6); Lymphocytes Absolute Manual 3.55 K/mm3 (1.1-4.5); Lymphocytes Percent Manual 12 % (18-44); Monocytes Absolute Manual 2.07 K/mm3 (0.1-0.90); Monocytes Percent Manual 7 % (3-9); Neutrophils Absolute Manual 23.97 K/mm3 (1.3-6.7); Neutrophils Percent Manual 77 % (46-73); Total Cells Counted 100
[2022-02-15 16:00] LABS: Platelet Estimate Adequate (Adequate)
[2022-02-15 16:01] LABS: Poikilocytosis 3+ (NORMAL)
[2022-02-15] MEDS: SODIUM CHLORIDE 0.9% IV 250 ML 30 ML IV CONT (16:01)
[2022-02-15 16:02] LABS: Anisocytosis 3+ (NORMAL); Hypochromasia 3+ (NORMAL); Microcytosis 3+ (NORMAL)
[2022-02-15 16:03] LABS: Macrocytosis 1+ (NORMAL); Ovalocytes 1+ (NORMAL); Spherocytes 2+ (NORMAL); Tear Drop Cells 1+ (NORMAL)
[2022-02-15 16:04] LABS: Schistocytes 2+ (NORMAL)
[2022-02-15 16:50] VITALS: BP 138/60; PULSE 129; RESP 16; TEMP 36.2; O2SAT 100
--- NOTE | 2022-02-15 17:15 | ADMGEN ---
This patient, Yoel Alfred, was admitted to 2nd Floor Room 209-1. Patient/family oriented to hospital policies and general routines including ID bracelet, bed and alarms, visiting hours, pain management, procedures, bathroom and other care routines, personal items, smoking policy, room service/diet, and visiting hours. Information on how to activate the Rapid Response Team has been discussed. Patient/Family are encouraged to report perceived risks to care and to ask questions if they do not understand what they are told or what they should do.
--- NOTE | 2022-02-15 17:35 | PC.NURSE ---
Spoke with garage supervisor and , family has declined blood products at this time and wishes the patient to be made comfortable
[2022-02-15 17:49] VITALS: BP 42/14; PULSE 62; RESP 36; TEMP 30.1
[2022-02-15 17:59] VITALS: PULSE 62; RESP 36; O2SAT 0
[2022-02-15] MEDS: LORazepam INJ (*CRX) 2 MG/ML VIAL IV PUSH (18:20)
--- NOTE | 2022-02-15 18:33 | PC.NURSE ---
Pt noted to have no vital signs, pronounced at [address] Camacho, carton catcher updated, [employer] updated, family here and aware, home in route.
--- NOTE | 2022-02-15 18:43 | WPDPN ---
Progress Note: A&P Assessment and Plan (1) Anemia: Qualifiers: Anemia type: other cause Code(s): D64.9 - Anemia, unspecified Status: Acute (2) Pancreatic cancer metastasized to liver: Code(s): C25.9 - Malignant neoplasm of pancreas, unspecified; C78.7 - Secondary malignant neoplasm of liver and intrahepatic bile duct Status: Acute Plan Patient at 1833 secondary to pancreatic cancer, severe anemia, metastatic cancer. Time Spent With Patient Time with patient: less than 15 minutes Subjective Date/time seen: 02/15/22 18:43 Interval history: I was called to the room because there was no spontaneous respirations or pulse. Patient came in with a history of pancreatic cancer with Mets and a hemoglobin of 5.4. He was having chest pain shortness of breath diaphoresis. He was admitted for blood transfusion and comfort measures. Exam Resp: Effort & Inspection: other ( No spontaneous respirations) Cardio: Other: no spontaneous pulses or heart sounds appreciated. Objective Data Vital Signs Vital Signs: Vital Signs - 24 hr 02/15/22 14:53 02/15/22 17:49 02/15/22 17:59 Temperature 36.3 C L 30.1 C L Pulse Rate 132 H 62 62 Respiratory Rate 16 36 H 36 H Blood Pressure 92/61 L 42/14 L Pulse Oximetry 100 0 L Oxygen Delivery Nasal Cannula Nasal Cannula Nasal Cannula Oxygen Flow Rate 5 6 6 02/15/22 16:50 Temperature 36.2 C L Pulse Rate 129 H Respiratory Rate 16 Blood Pressure 138/60 Pulse Oximetry 100 Oxygen Delivery Nasal Cannula Oxygen Flow Rate 5 Intake/Output Intake/Output: Intake & Output 02/12/22 02/13/22 02/14/22 02/15/22 23:59 23:59 23:59 23:59 Intake Total 77.5 Output Total 0 Balance 77.5 Meds/Results Medications: Active Medications Generic Name Dose Route Start Last Admin Trade Name Freq PRN Reason Stop Dose Admin Sodium Chloride 250 mls @ 30 mls/hr 02/15/22 15:20 02/15/22 17:36 Normal Saline Iv IV CONT 02/15/22 23:39 Infused .Q8H20M STA Infusion Lorazepam 1 mg 02/15/22 16:44 Lorazepam (*Crx) 1 Mg Tablet PO Q4H PRN Anxiety Lorazepam 2 mg 02/15/22 18:01 02/15/22 18:20 Lorazepam Inj (*Crx) 2 Mg/Ml Vial IV PUSH 2 mg Q2H PRN Administration anxiety Morphine Sulfate 5 mg 02/15/22 16:44 Morphine Sulfate Oral Conc Deborah (*Crx) 10 Mg/0.5 Ml Syringe PO Q4H PRN Pain Rated 7-10 Labs Labs: Laboratory Results - last 24 hr 02/15/22 02/15/22 02/15/22 15:07 15:07 15:07 WBC 29.6 H* RBC 1.77 L Hgb 5.4 L* Hct 18.7 L* MCV 105.6 H MCH 30.5 MCHC 28.9 L RDW 23.6 H Plt Count 228 MPV 9.8 Immature Gran % (Auto) Not Reportable Neut % (Auto) Not Reportable Lymph % (Auto) Not Reportable [place] % (Auto) Not Reportable Eos % (Auto) Not Reportable Baso % (Auto) Not Reportable Lymph # (Auto) Not Reportable [place] # (Auto) Not Reportable Eos # (Auto) Not Reportable Baso # (Auto) Not Reportable Abs Immat Gran (auto) Not Reportable Absolute Neuts (auto) Not Reportable Absolute Nucleated RBC Not Reportable Total Counted 100 Neutrophils % (Manual) 77 H Band Neutrophils % 4 Lymphocytes % (Manual) 12 L Monocytes % (Manual) 7 Nucleated RBC % Not Reportable Abs Neuts (Manual) 23.97 H Abs Lymphs (Manual) 3.55 Abs Monocytes (Manual) 2.07 H Platelet Estimate Adequate Hypochromasia 3+ Poikilocytosis 3+ Anisocytosis 3+ Microcytosis 3+ Macrocytosis 1+ Spherocytes 2+ Tear Drop Cells 1+ Ovalocytes 1+ Schistocytes 2+ PT 28.7 H INR 2.8 Sodium 141 Potassium 5.0 Chloride 106 Carbon Dioxide 22 Anion Gap 13 BUN 47 H Creatinine 1.60 H Estim Creat Clear Calc Not Reportable Estimated GFR 43 L Glucose 212 H Calculated Osmolality 310 H Calcium 7.4 L Total Bilirubin 6.6 H AST 193 H ALT 147 H Alkaline Phosphatase
== END 2022-02-15 18:30 | disposition expired ==
LOC: CHSED 16:05 → CHS2ND 16:12
PROVIDERS: Admitting Provider Internal Medicine; Emergency Provider Emergency Medicine; PCP Internal Medicine; Visit Provider Internal Medicine
DX: C25.9 Malignant neoplasm of pancreas, unspecified (principal); C78.7 Secondary malignant neoplasm of liver and intrahepatic bile duct; D64.9 Anemia, unspecified; I10 Essential (primary) hypertension; I25.2 Old myocardial infarction; J44.9 Chronic obstructive pulmonary disease, unspecified; M19.90 Unspecified osteoarthritis, unspecified site; M10.9 Gout, unspecified; E78.5 Hyperlipidemia, unspecified; N40.0 Benign prostatic hyperplasia without lower urinary tract symptoms; Z87.891 Personal history of nicotine dependence
CPT/HCPCS: 36415; 80053; 84484; 85025; 85610; 86850; 86900; 86901; 86920; 93005; 96361; 96372; 96374; 99285; G0378; J1170; J2060; J7050